=== PATIENT | male | born 1955 | race Caucasian/White ===

== ENCOUNTER 2020-08-24 10:00 | Outpatient (CLI) | payer OTHER, MEDICARE | END 2020-08-24 10:01 | disposition home or self-care (01) | LOC: CSHWCC 10:00 | PROVIDERS: ATTEND Nurse Practitioner Family | DX: I87.311 Chronic venous hypertension (idiopathic) with ulcer of right lower extremity (principal); I87.2 Venous insufficiency (chronic) (peripheral); E11.621 Type 2 diabetes mellitus with foot ulcer; L97.519 Non-pressure chronic ulcer of other part of right foot with unspecified severity; L97.812 Non-pressure chronic ulcer of other part of right lower leg with fat layer exposed; S91.201D Unspecified open wound of right great toe with damage to nail, subsequent encounter; E03.9 Hypothyroidism, unspecified; E11.40 Type 2 diabetes mellitus with diabetic neuropathy, unspecified; E11.65 Type 2 diabetes mellitus with hyperglycemia; F32.9 Major depressive disorder, single episode, unspecified; H91.23 Sudden idiopathic hearing loss, bilateral; I10 Essential (primary) hypertension; I82.491 Acute embolism and thrombosis of other specified deep vein of right lower extremity; M19.072 Primary osteoarthritis, left ankle and foot; R60.0 Localized edema; V29.88XD Motorcycle rider (driver) (passenger) injured in other specified transport accidents, subsequent encounter | CPT/HCPCS: 11042; 11730; 99203; G0463 ==

== ENCOUNTER 2020-08-24 11:48 | Outpatient (CLI) | payer MEDICARE | END 2020-08-24 11:49 | disposition home or self-care (01) | LOC: CSHRAD 11:48 | PROVIDERS: ATTEND Nurse Practitioner Family | DX: E11.40 Type 2 diabetes mellitus with diabetic neuropathy, unspecified (principal); E11.65 Type 2 diabetes mellitus with hyperglycemia; M19.071 Primary osteoarthritis, right ankle and foot ==

== ENCOUNTER 2020-09-07 10:16 | Outpatient (CLI) | payer OTHER, MEDICARE | END 2020-09-07 10:17 | disposition home or self-care (01) | LOC: CSHWCC 10:16 | PROVIDERS: ATTEND Nurse Practitioner Family | DX: I87.311 Chronic venous hypertension (idiopathic) with ulcer of right lower extremity (principal); I87.2 Venous insufficiency (chronic) (peripheral); E11.621 Type 2 diabetes mellitus with foot ulcer; E11.622 Type 2 diabetes mellitus with other skin ulcer; L97.812 Non-pressure chronic ulcer of other part of right lower leg with fat layer exposed; L97.519 Non-pressure chronic ulcer of other part of right foot with unspecified severity; R60.0 Localized edema; S91.201D Unspecified open wound of right great toe with damage to nail, subsequent encounter; R60.9 Edema, unspecified; B35.1 Tinea unguium; E03.9 Hypothyroidism, unspecified; E11.40 Type 2 diabetes mellitus with diabetic neuropathy, unspecified; E11.65 Type 2 diabetes mellitus with hyperglycemia; F32.9 Major depressive disorder, single episode, unspecified; H91.23 Sudden idiopathic hearing loss, bilateral; I82.491 Acute embolism and thrombosis of other specified deep vein of right lower extremity; M19.072 Primary osteoarthritis, left ankle and foot; V29.88XD Motorcycle rider (driver) (passenger) injured in other specified transport accidents, subsequent encounter | CPT/HCPCS: 11042; 99213; G0463 ==

== ENCOUNTER 2020-11-28 08:23 | Outpatient (CLI) | payer MEDICARE, OTHER | END 2020-11-28 08:24 | disposition home or self-care (01) | LOC: CSHWCC 08:23 | PROVIDERS: ATTEND Nurse Practitioner Family | DX: I87.2 Venous insufficiency (chronic) (peripheral) (principal); E11.621 Type 2 diabetes mellitus with foot ulcer; L97.519 Non-pressure chronic ulcer of other part of right foot with unspecified severity; I82.491 Acute embolism and thrombosis of other specified deep vein of right lower extremity; R60.0 Localized edema; B35.1 Tinea unguium; E03.9 Hypothyroidism, unspecified; E11.40 Type 2 diabetes mellitus with diabetic neuropathy, unspecified; E11.65 Type 2 diabetes mellitus with hyperglycemia; F32.9 Major depressive disorder, single episode, unspecified; H91.23 Sudden idiopathic hearing loss, bilateral; I10 Essential (primary) hypertension; M19.072 Primary osteoarthritis, left ankle and foot; V29.88XD Motorcycle rider (driver) (passenger) injured in other specified transport accidents, subsequent encounter | CPT/HCPCS: 29445; 99213; G0463 ==

== ENCOUNTER 2020-12-07 09:31 | Outpatient (CLI) | payer MEDICARE | END 2020-12-07 09:32 | disposition home or self-care (01) | LOC: CSHWCC 09:31 | PROVIDERS: ATTEND Nurse Practitioner Family | DX: E11.621 Type 2 diabetes mellitus with foot ulcer (principal); L97.519 Non-pressure chronic ulcer of other part of right foot with unspecified severity; R60.0 Localized edema; B35.1 Tinea unguium; E03.9 Hypothyroidism, unspecified; E11.40 Type 2 diabetes mellitus with diabetic neuropathy, unspecified; E11.65 Type 2 diabetes mellitus with hyperglycemia; F32.9 Major depressive disorder, single episode, unspecified; H91.23 Sudden idiopathic hearing loss, bilateral; I10 Essential (primary) hypertension; I82.491 Acute embolism and thrombosis of other specified deep vein of right lower extremity; I87.2 Venous insufficiency (chronic) (peripheral); M19.072 Primary osteoarthritis, left ankle and foot; V29.88XS Motorcycle rider (driver) (passenger) injured in other specified transport accidents, sequela | CPT/HCPCS: 29445; 97139; G0463; 99213 ==

== ENCOUNTER 2020-12-14 08:41 | Outpatient (CLI) | payer MEDICARE | END 2020-12-14 08:42 | disposition home or self-care (01) | LOC: CSHWCC 08:41 | PROVIDERS: ATTEND Nurse Practitioner Family | DX: I87.2 Venous insufficiency (chronic) (peripheral) (principal); E11.621 Type 2 diabetes mellitus with foot ulcer; L97.519 Non-pressure chronic ulcer of other part of right foot with unspecified severity; I82.491 Acute embolism and thrombosis of other specified deep vein of right lower extremity; B35.1 Tinea unguium; E03.9 Hypothyroidism, unspecified; E11.40 Type 2 diabetes mellitus with diabetic neuropathy, unspecified; E11.65 Type 2 diabetes mellitus with hyperglycemia; F32.9 Major depressive disorder, single episode, unspecified; H91.23 Sudden idiopathic hearing loss, bilateral; I10 Essential (primary) hypertension; M19.072 Primary osteoarthritis, left ankle and foot; R60.0 Localized edema; V29.88XD Motorcycle rider (driver) (passenger) injured in other specified transport accidents, subsequent encounter | CPT/HCPCS: 29445; 99213; G0463 ==

== ENCOUNTER 2020-12-28 09:01 | Outpatient (CLI) | payer MEDICARE | END 2020-12-28 09:02 | disposition home or self-care (01) | LOC: CSHWCC 09:01 | PROVIDERS: ATTEND Nurse Practitioner Family | DX: E11.621 Type 2 diabetes mellitus with foot ulcer (principal); L97.511 Non-pressure chronic ulcer of other part of right foot limited to breakdown of skin; B35.1 Tinea unguium; E03.9 Hypothyroidism, unspecified; E11.40 Type 2 diabetes mellitus with diabetic neuropathy, unspecified; E11.65 Type 2 diabetes mellitus with hyperglycemia; H91.23 Sudden idiopathic hearing loss, bilateral; I10 Essential (primary) hypertension; I82.491 Acute embolism and thrombosis of other specified deep vein of right lower extremity; I87.2 Venous insufficiency (chronic) (peripheral); M19.072 Primary osteoarthritis, left ankle and foot; R60.0 Localized edema; V29.88XS Motorcycle rider (driver) (passenger) injured in other specified transport accidents, sequela | CPT/HCPCS: 99213; G0463 ==

== ENCOUNTER 2021-02-16 09:17 | Outpatient (CLI) | payer MEDICARE | END 2021-02-16 09:18 | disposition home or self-care (01) | LOC: CSHWCC 09:17 | PROVIDERS: ATTEND Nurse Practitioner Family | DX: E11.621 Type 2 diabetes mellitus with foot ulcer (principal); B35.1 Tinea unguium; E03.9 Hypothyroidism, unspecified; E11.40 Type 2 diabetes mellitus with diabetic neuropathy, unspecified; E11.65 Type 2 diabetes mellitus with hyperglycemia; L97.512 Non-pressure chronic ulcer of other part of right foot with fat layer exposed; F32.9 Major depressive disorder, single episode, unspecified; H91.23 Sudden idiopathic hearing loss, bilateral; I10 Essential (primary) hypertension; I82.491 Acute embolism and thrombosis of other specified deep vein of right lower extremity; I87.2 Venous insufficiency (chronic) (peripheral); M19.072 Primary osteoarthritis, left ankle and foot; R60.0 Localized edema; V29.88XS Motorcycle rider (driver) (passenger) injured in other specified transport accidents, sequela | CPT/HCPCS: 11042; 97139; G0463; 99213 ==

== ENCOUNTER 2021-02-23 09:29 | Outpatient (CLI) | payer OTHER, MEDICARE | END 2021-02-23 09:30 | disposition home or self-care (01) | LOC: CSHWCC 09:29 | PROVIDERS: ATTEND Nurse Practitioner Family | DX: E11.621 Type 2 diabetes mellitus with foot ulcer (principal); L97.512 Non-pressure chronic ulcer of other part of right foot with fat layer exposed; B35.1 Tinea unguium; E03.9 Hypothyroidism, unspecified; E11.40 Type 2 diabetes mellitus with diabetic neuropathy, unspecified; E11.65 Type 2 diabetes mellitus with hyperglycemia; F32.9 Major depressive disorder, single episode, unspecified; H91.23 Sudden idiopathic hearing loss, bilateral; I10 Essential (primary) hypertension; I82.491 Acute embolism and thrombosis of other specified deep vein of right lower extremity; I87.2 Venous insufficiency (chronic) (peripheral); M19.072 Primary osteoarthritis, left ankle and foot; R60.0 Localized edema; V29.88XD Motorcycle rider (driver) (passenger) injured in other specified transport accidents, subsequent encounter | CPT/HCPCS: 11042; 97139; G0463; 99213 ==

== ENCOUNTER 2021-02-28 08:24 | Outpatient (CLI) | payer MEDICARE | END 2021-02-28 08:25 | disposition home or self-care (01) | LOC: CSHWCC 08:24 | PROVIDERS: ATTEND Nurse Practitioner Family | DX: E11.621 Type 2 diabetes mellitus with foot ulcer (principal); L97.512 Non-pressure chronic ulcer of other part of right foot with fat layer exposed; R60.0 Localized edema; B35.1 Tinea unguium; E03.9 Hypothyroidism, unspecified; E11.40 Type 2 diabetes mellitus with diabetic neuropathy, unspecified; E11.65 Type 2 diabetes mellitus with hyperglycemia; F32.9 Major depressive disorder, single episode, unspecified; H91.23 Sudden idiopathic hearing loss, bilateral; I10 Essential (primary) hypertension; I82.491 Acute embolism and thrombosis of other specified deep vein of right lower extremity; I87.2 Venous insufficiency (chronic) (peripheral); M19.072 Primary osteoarthritis, left ankle and foot; V29.88XS Motorcycle rider (driver) (passenger) injured in other specified transport accidents, sequela ==

== ENCOUNTER 2021-03-14 10:07 | Outpatient (CLI) | payer OTHER, MEDICARE | END 2021-03-14 10:08 | disposition home or self-care (01) | LOC: CSHWCC 10:07 | PROVIDERS: ATTEND Nurse Practitioner Family | DX: I87.2 Venous insufficiency (chronic) (peripheral) (principal); I82.491 Acute embolism and thrombosis of other specified deep vein of right lower extremity; E11.621 Type 2 diabetes mellitus with foot ulcer; L97.512 Non-pressure chronic ulcer of other part of right foot with fat layer exposed; R60.0 Localized edema; E11.40 Type 2 diabetes mellitus with diabetic neuropathy, unspecified; E11.65 Type 2 diabetes mellitus with hyperglycemia; M19.072 Primary osteoarthritis, left ankle and foot; F32.9 Major depressive disorder, single episode, unspecified; B35.1 Tinea unguium; E03.9 Hypothyroidism, unspecified; H91.23 Sudden idiopathic hearing loss, bilateral; I10 Essential (primary) hypertension; V29.88XS Motorcycle rider (driver) (passenger) injured in other specified transport accidents, sequela | CPT/HCPCS: 11042; 99213; G0463 ==

== ENCOUNTER 2021-03-28 08:51 | Outpatient (CLI) | payer MEDICARE | END 2021-03-28 08:52 | disposition home or self-care (01) | LOC: CSHWCC 08:51 | PROVIDERS: ATTEND Nurse Practitioner Family | DX: I87.2 Venous insufficiency (chronic) (peripheral) (principal); E11.621 Type 2 diabetes mellitus with foot ulcer; L97.512 Non-pressure chronic ulcer of other part of right foot with fat layer exposed; E11.40 Type 2 diabetes mellitus with diabetic neuropathy, unspecified; E11.65 Type 2 diabetes mellitus with hyperglycemia; I82.491 Acute embolism and thrombosis of other specified deep vein of right lower extremity; R60.0 Localized edema; M19.072 Primary osteoarthritis, left ankle and foot; E03.9 Hypothyroidism, unspecified; B35.1 Tinea unguium; F32.9 Major depressive disorder, single episode, unspecified; H91.23 Sudden idiopathic hearing loss, bilateral; I10 Essential (primary) hypertension; V29.88XD Motorcycle rider (driver) (passenger) injured in other specified transport accidents, subsequent encounter ==

== ENCOUNTER 2021-04-11 09:10 | Outpatient (CLI) | payer MEDICARE | END 2021-04-11 09:11 | disposition home or self-care (01) | LOC: CSHWCC 09:10 | PROVIDERS: ATTEND Nurse Practitioner Family | DX: E11.621 Type 2 diabetes mellitus with foot ulcer (principal); L97.512 Non-pressure chronic ulcer of other part of right foot with fat layer exposed; B35.1 Tinea unguium; E03.9 Hypothyroidism, unspecified; E11.40 Type 2 diabetes mellitus with diabetic neuropathy, unspecified; E11.65 Type 2 diabetes mellitus with hyperglycemia; F32.9 Major depressive disorder, single episode, unspecified; H91.23 Sudden idiopathic hearing loss, bilateral; I10 Essential (primary) hypertension; I82.491 Acute embolism and thrombosis of other specified deep vein of right lower extremity; I87.2 Venous insufficiency (chronic) (peripheral); M19.072 Primary osteoarthritis, left ankle and foot; R60.0 Localized edema; V29.88XD Motorcycle rider (driver) (passenger) injured in other specified transport accidents, subsequent encounter ==

== ENCOUNTER 2021-05-02 10:47 | Outpatient (CLI) | payer MEDICARE | END 2021-05-02 10:48 | disposition home or self-care (01) | LOC: CSHWCC 10:47 | PROVIDERS: ATTEND Nurse Practitioner Family | DX: I87.2 Venous insufficiency (chronic) (peripheral) (principal); E11.621 Type 2 diabetes mellitus with foot ulcer; E11.40 Type 2 diabetes mellitus with diabetic neuropathy, unspecified; E11.65 Type 2 diabetes mellitus with hyperglycemia; L97.512 Non-pressure chronic ulcer of other part of right foot with fat layer exposed; B35.1 Tinea unguium; E03.9 Hypothyroidism, unspecified; F32.9 Major depressive disorder, single episode, unspecified; H91.23 Sudden idiopathic hearing loss, bilateral; I10 Essential (primary) hypertension; I82.491 Acute embolism and thrombosis of other specified deep vein of right lower extremity; M19.072 Primary osteoarthritis, left ankle and foot; R60.0 Localized edema; V29.88XD Motorcycle rider (driver) (passenger) injured in other specified transport accidents, subsequent encounter ==

== ENCOUNTER 2021-05-16 14:27 | Outpatient (CLI) | payer MEDICARE | END 2021-05-16 14:28 | disposition home or self-care (01) | LOC: CSHWCC 14:27 | PROVIDERS: ATTEND Nurse Practitioner Family | DX: E11.621 Type 2 diabetes mellitus with foot ulcer (principal); L97.512 Non-pressure chronic ulcer of other part of right foot with fat layer exposed; R60.0 Localized edema; I87.2 Venous insufficiency (chronic) (peripheral); I82.491 Acute embolism and thrombosis of other specified deep vein of right lower extremity; E03.9 Hypothyroidism, unspecified; B35.1 Tinea unguium; E11.40 Type 2 diabetes mellitus with diabetic neuropathy, unspecified; E11.65 Type 2 diabetes mellitus with hyperglycemia; F32.9 Major depressive disorder, single episode, unspecified; H91.23 Sudden idiopathic hearing loss, bilateral; M19.072 Primary osteoarthritis, left ankle and foot; V29.88XD Motorcycle rider (driver) (passenger) injured in other specified transport accidents, subsequent encounter | CPT/HCPCS: 11042 ==

== ENCOUNTER 2021-06-20 10:11 | Outpatient (CLI) | payer MEDICARE | END 2021-06-20 10:12 | disposition home or self-care (01) | LOC: CSHWCC 10:11 | PROVIDERS: ATTEND Nurse Practitioner Family | DX: L97.519 Non-pressure chronic ulcer of other part of right foot with unspecified severity (principal) | CPT/HCPCS: 11042 ==